=== PATIENT | female | born 1970 | race Caucasian/White ===

== ENCOUNTER 2021-12-13 15:29 | Outpatient (CLI) | payer BC, SELFPAY ==
--- NOTE | 2021-12-13 16:00 | CRLHL7_ITS ---
For Patients: As a result of the Century Cures Act, medical imaging exams and procedure reports are released immediately into your electronic medical record. You may view this report before your referring provider. If you have questions, please contact your health care provider. INDICATION: Leg pain and swelling. TECHNIQUE: Ultrasound venous duplex lower left extremity. Compression venous exam was performed using nguyen-scale, color Doppler, and spectral Doppler analysis. COMPARISON: None. FINDINGS: Deep veins: Sonographic imaging demonstrates the left common femoral, deep femoral, superficial femoral, popliteal, posterior tibial and the contralateral right common femoral veins to be fully compressible with normal color Doppler blood flow. Superficial veins: Greater saphenous vein is fully compressible. No popliteal cyst. Probable normal lymph node in the right inguinal region. IMPRESSION: No DVT in the left lower extremity. Dictated by Ilya Mata MD @ 12/13/2021 5:06:30 PM (Electronically Signed)
== END 2021-12-13 15:30 | disposition home or self-care (01) ==
PROVIDERS: PCP Family Medicine; Visit Provider Family Medicine
DX: M79.605 Pain in left leg (principal); R22.42 Localized swelling, mass and lump, left lower limb
CPT/HCPCS: 93971

== ENCOUNTER 2022-05-08 15:38 | Outpatient (CLI) | payer BC, SELFPAY ==
--- NOTE | 2022-05-08 15:30 | CRLHL7_ITS ---
For Patients: As a result of the Century Cures Act, medical imaging exams and procedure reports are released immediately into your electronic medical record. You may view this report before your referring provider. If you have questions, please contact your health care provider. HISTORY: Right midfoot pain. Known 5th metatarsal fracture. TECHNIQUE: Axial sagittal and coronal T1, proton density and STIR images were obtained of the right foot without contrast administration. COMPARISON: None FINDINGS: Osseous structures: Acute oblique nondisplaced 5th metatarsal diaphyseal fracture with associated bone marrow and surrounding soft tissue edema. - Joint spaces: TMT, metatarsophalangeal and interphalangeal joints are maintained. - Tendons, ligaments and muscular structures: The flexor and extensor tendons at the level forefoot are intact. Lisfranc ligament is intact. - Soft tissues: No Verdugo`s neuroma. The plantar aponeurosis at the forefoot level is intact. No significant muscle atrophy. Mild plantar subcutaneous edema. Focal fluid subjacent to the 5th metatarsal head could be due to adventitial bursitis (series 7, image 6). IMPRESSION: 1. Acute nondisplaced fracture of the 5th metatarsal diaphysis. 2. Small focus of fluid subjacent to 5th metatarsal head could be due to adventitial bursitis. Dictated by Tamir Aiken MD @ 05/09/2022 1:32:21 PM (Electronically Signed)
== END 2022-05-08 15:39 | disposition home or self-care (01) ==
LOC: MRI 15:39
PROVIDERS: PCP Family Medicine; Visit Provider Physician Assistant Surgical
DX: M79.671 Pain in right foot (principal); S92.354A Nondisplaced fracture of fifth metatarsal bone, right foot, initial encounter for closed fracture
CPT/HCPCS: 73718

== ENCOUNTER 2022-06-04 09:35 | Emergency (ER) | payer BC, SELFPAY ==
[2022-06-04 09:49] VITALS: BP 140/85; PULSE 61; RESP 20; TEMP 36.4; O2SAT 96; BMI 21.6
--- NOTE | 2022-06-04 10:56 | CRLHL7_ITS ---
For Patients: As a result of the Century Cures Act, medical imaging exams and procedure reports are released immediately into your electronic medical record. You may view this report before your referring provider. If you have questions, please contact your health care provider. Indication: Calf pain. Technique: MRI right foot May 08, 2022 views. Comparison: None. Findings: Bones: Subacute appearing nondisplaced fracture is incompletely healed in the right 5th metatarsal. No other osseous abnormality. Joint spaces: Unremarkable. Soft tissues: Unremarkable. Dictated by Leonardo Bell MD @ 06/04/2022 12:04:48 PM (Electronically Signed)
--- NOTE | 2022-06-04 10:56 | CRLHL7_ITS ---
For Patients: As a result of the Cures Act, medical imaging exams and procedure reports are released immediately into your electronic medical record. You may view this report before your referring provider. If you have questions, please contact your health care provider. INDICATION: Right calf pain, history fracture TECHNIQUE: Ultrasound venous duplex lower right extremity. Compression venous exam was performed using nguyen-scale, color Doppler, and spectral Doppler imaging. COMPARISON: None. FINDINGS: Sonographic imaging demonstrates the right common femoral, proximal deep femoral, femoral, popliteal, posterior tibial and greater saphenous and the contralateral left common femoral veins to be fully compressible with normal color Doppler blood flow. IMPRESSION: Normal right lower extremity venous ultrasound, no sign of deep venous thrombosis. Dictated by Nereida Holt MD @ 06/04/2022 12:55:11 PM Dictated by: Nereida Holt MD @ 06/04/2022 12:56:22 (Electronically Signed)
--- NOTE | 2022-06-04 10:57 | ED.LOWEXIN ---
HPI - Extremity Injury (Lower) General Chief Complaint: Extremity Pain/Injury, Lower Stated Complaint: Broken RT Foot has swelling and red Time Seen by Provider: 06/04/22 10:13 History of Present Illness HPI Narrative: This 52-year-old female comes in because of persistent pain in her right foot. She was concerned about some increased redness after being in the shower. She fractured her 5th metatarsal about 6 weeks ago. She had a spiral type fracture of the midshaft of the 5th metatarsal of the right foot. She has been in a Cam walker and still is nonweightbearing. She reports too much pain when attempting to bear weight. She is following with a physician's it administrative assistant in the orthopedic clinic in this regard. She does have a small area of bruising on the plantar surface of her right foot. This is been present throughout this time of recovery since the injury. Related Data Home Medications Medication Instructions Recorded Confirmed aspirin 325 mg tablet 325 mg PO QDAY 12/13/21 06/01/22 cholecalciferol (vitamin D3) 25 25 mcg PO QDAY 12/13/21 06/01/22 mcg (1,000 unit) capsule ascorbate calcium (vitamin C) 500 500 mg PO QDAY 05/30/22 06/01/22 mg tablet krill oil 500 mg capsule 500 mg PO .QD 05/30/22 06/01/22 Allergies Allergy/AdvReac Type Severity Reaction Status Date / Time penicillin V Allergy Mild swelling Verified 06/04/22 09:49 Rabies immune globulin, human Allergy Unknown headache, Uncoded 06/01/22 16:35 breathing difficultly, body aches Rabies vaccines Allergy Unknown headache, Uncoded 06/01/22 16:35 body aches, difficulty breating, shooting pains Tetanus toxoid Allergy Unknown breathing Uncoded 06/01/22 16:35 difficulty and swelling contrast dye Allergy red, hives Uncoded 06/01/22 16:35 Review of Systems Status of ROS: Reports: 10 or more systems reviewed and unremarkable except as noted in History and below Narrative: Constitutional: No fevers, no weight gain or loss. Eyes: No discharge. No vision changes. HENT: No congestion, no sore throat, no ear pain. Cardiovascular: No chest pain, no palpitations. Respiratory: No shortness of breath, no wheezes, no cough. Gastrointestinal: No abdominal pain, no vomiting, no diarrhea. Genitourinary: No dysuria, no hematuria. Musculoskeletal: Normal range of motion. Right foot pain as described above. Skin: No rashes, no pruritis. Neurological: No dizziness, weakness, sensory change, speech change. Endo/Heme/Allergies: No bruising or bleeding. No polydipsia. Pysch: no suicidality, no anxiety, no insomnia. All other systems reviewed and are negative. 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, lives in [place] exercises 3-4 times per week- walk, elliptical, weights - until 2019 non-smoker social drinker- 1-2/week Smoking Status: Never smoker Do you use any of these nicotine containing products: None Second hand tobacco smoke exposure: No How often do you have a drink containing alcohol: monthly or less How many standard drinks containing alcohol do you have on a typical day: 1 or 2 How often do you have six or more drinks on one occasion: Never AUDIT-C Alcohol total score: 1 Non-prescribed substance use: denies use service: No Exam Narrative: Exam Narrative: Constitutional: Well-developed, well-nourished, no acute distress. HEENT: Normocephalic, atraumatic. Neck: Normal range of motion. Nontender. Supple. Heart: Intact distal pulses. Lungs: No chest discomfort. No wheezes, rhonchi, or rales. Abdomen: Nontender. Back: Normal range of motion. Extremities: Normal range of motion. Tenderness along the plantar surface of the right foot. Slight increased erythema of the right foot compared to the left. No significant swelling. Skin: Intact. No rash. Warm. No erythema or pallor. Neurologic: No altered sensation. No weakness. Alert and oriented. Psychiatric: No suicidality. No anxiety or depression. No insomnia. Nursing notes and vitals signs are reviewed. Const: Vital Signs, click to edit/add: Vital Signs - 24 hr 06/04/22 09:49 Temperature 97.6 F Pulse Rate [Pulse Oximeter] 61 Respiratory Rate 20 Blood Pressure [Le ft Upper Arm] 140/85 H Pulse Oximetry 96 Oxygen Delivery Me thod Room Air Course Vital Signs Vital signs: Initial Vital Signs Temperature 97.6 F 06/04/22 09:49 Temperature Source Temporal Artery Scan 06/04/22 09:49 Pulse Rate 61 06/04/22 09:49 Pulse Rhythm 06/04/22 09:49 Respiratory Rate 20 06/04/22 09:49 Blood Pressure 140/85 H 06/04/22 09:49 Blood Pressure Mean 103 06/04/22 09:49 Blood Pressure Position Supine 06/04/22 09:49 Pulse Oximetry 96 06/04/22 09:49 Oxygen Delivery Method 06/04/22 09:49 Vital Signs Temperature 97.6 F 06/04/22 09:49 Pulse Rate 61 06/04/22 09:49 Respiratory Rate 20 06/04/22 09:49 Blood Pressure 140/85 H 06/04/22 09:49 Pulse Oximetry 96 06/04/22 09:49 Oxygen Delivery Method 06/04/22 09:49 Temperature 97.6 F 06/04/22 09:49 Pulse Rate 61 06/04/22 09:49 Respiratory Rate 20 06/04/22 09:49 Blood Pressure 140/85 H 06/04/22 09:49 Pulse Oximetry 96 06/04/22 09:49 Oxygen Delivery Method 06/04/22 09:49 MDM - Extremity Injury (Lower) MDM Narrative Medical decision making narrative: This patient comes in with concern about ongoing pain in her right foot and discoloration of her right foot at times especially when she has her foot down toward the ground and is dependent to gravity. She had a fracture of her 5th metatarsal more than 6 weeks ago. X-ray imaging today shows the fracture without much evidence of my opinion of proper healing. I would expect that this bone would be fused together by 6 weeks and be rather strong where she can ambulate. X-ray imaging she seems to show demineralization of the distal portion of the fractured bone. An ultrasound of her right lower extremity shows no evidence of vascular compromise. I gave reassurance is to the patient and advised her not to bear weight at all on this foot and to wear the cam walker. She has crutches to assist in this process. An arrangement is made for follow-up appointment with orthopedic clinic this week. I suggested that she should connect with an orthopedic surgeon for what may appear to be a nonunion of this particular fracture. Discharge Plan Discharge Clinical Impression: Foot fracture Patient Disposition: Home, Self-Care Condition: Unchanged Additional Instructions: Wear cam walker and avoid any weight-bearing on the right foot. Use crutches. Follow-up with orthopedic clinic to consult with orthopedic surgeon as scheduled. Prescriptions: No Action cholecalciferol (vitamin D3) 25 mcg (1,000 unit) capsule 25 mcg PO QDAY aspirin 325 mg tablet 325 mg PO QDAY ascorbate calcium (vitamin C) 500 mg tablet 500 mg PO QDAY krill oil 500 mg capsule 500 mg PO .QD Follow Up/Referrals: Nikki Mendoza MD [Staff Physician] - Stand Alone Forms: [employer] Info Instructions
--- NOTE | 2022-06-04 12:45 | ED.NURSE ---
Pt returns home with CAM walker and crutches, all brought from home.
--- NOTE | 2022-06-06 22:38 | ED.NURSE ---
Pt calling with questions regarding discharge instructions and xray results. Pt's xray results and discharge instructions read to pt.
== END 2022-06-04 13:05 | disposition home or self-care (01) ==
PROVIDERS: Emergency Provider Emergency Medicine Emergency Medical Services; PCP Family Medicine
DX: S92.354A Nondisplaced fracture of fifth metatarsal bone, right foot, initial encounter for closed fracture (principal)
CPT/HCPCS: 73630; 93971; 99283; 99284

== ENCOUNTER 2022-06-06 13:19 | Outpatient (CLI) | payer BC, SELFPAY ==
--- NOTE | 2022-06-06 13:00 | MR_ITS ---
[facility] [address] [facility] [address] Phone:?[phone] Fax:?[phone] Referring Physician Information: Jeffery Christiansen M.D. [address] [facility] [address] Phone:?[phone] Fax:?[phone] Patient:Rae Nascimento D.O.B:?1970 Sex:?Female Phone:?[phone] [facility] MRN:?[id number] Exam Date:?06/06/2022 ? EXAM: MRI of the LEFT FOOT MIDFOOT THROUGH FOREFOOT CLINICAL HISTORY: Left foot pain for multiple years. Evaluate for malignancy or other cause. COMPARISONS: None available. TECHNICAL: MR sequences of the left foot midfoot through forefoot: Axials: PD, STIR Coronals: T1, STIR, T2 Sagittals: PD, T2 Contrast: None Sedation: None FINDINGS: Osseous structures and joints: No fracture or suspicious bone marrow signal abnormality is seen. There is no subluxation, dislocation, joint space narrowing, or erosive change. There is a type II accessory navicular, which is not completely covered on all sequences in the [id number] of this study. Ligaments: The Lisfranc and collateral ligaments are intact. Myotendinous structures: The imaged portions of the extensor and flexor tendons are unremarkable. No muscle strain, tear, or atrophy is present. Soft tissues: No convincing evidence of intermetatarsal Verdugo neuroma, pathologic intermetatarsal bursitis, or ganglion. No mass lesion/neoplastic lesion is seen. IMPRESSION: Type II accessory navicular, a normal anatomic variant, not completely covered on all sequences in the [id number] of this study. Otherwise, unremarkable MRI of the left foot without fracture, osseous stress injury, ligamentous injury, tendinous pathology, or mass lesion. RCB Electronically signed on 06/07/2022 6:32:00 AM by Ozzie Dominguez M.D.
--- NOTE | 2022-06-06 13:45 | MR_ITS ---
[facility] [address] [facility] [address] Phone:?[phone] Fax:?[phone] Referring Physician Information: Jeffery Christiansen M.D. [address] [facility] [address] Phone:?[phone] Fax:?[phone] Patient:?Rebecca Nascimento D.O.B:?1970 Sex:?Female Phone:?[phone] [facility] MRN:?[id number] Exam Date:?06/06/2022 ? EXAM: MRI of the LEFT LEG INCLUDING TIBIA/FIBULA WITHOUT CONTRAST CLINICAL HISTORY: Ongoing left leg pain for multiple years without reported traumatic injury or previous surgery. Evaluate for malignancy or other cause. COMPARISONS: None available. TECHNICAL: MRI sequences of the left leg: Axials: T1, PD FS bilateral Coronals: T1, T2, STIR bilateral Sagittals: STIR Sedation: None Contrast: None FINDINGS: No fracture or suspicious bone marrow signal normality is seen. No muscle strain, tear, or atrophy is seen. No mass lesion is seen. IMPRESSION: Unremarkable MRI of the left leg/tibia-fibula without osseous pathology, muscular pathology, or mass lesion. RCB Electronically signed on 06/07/2022 6:20:00 AM by Ozzie Dominguez M.D.
== END 2022-06-06 13:20 | disposition home or self-care (01) ==
LOC: MRI 13:19
PROVIDERS: PCP Family Medicine; Visit Provider Family Medicine
DX: M79.672 Pain in left foot (principal); M79.605 Pain in left leg
CPT/HCPCS: 73718

== ENCOUNTER 2022-11-14 10:15 | Outpatient (RCR) | payer BC, SELFPAY | END 2023-01-10 13:34 | disposition home or self-care (01) | PROVIDERS: PCP Family Medicine; Visit Provider Podiatrist | DX: S92.354A Nondisplaced fracture of fifth metatarsal bone, right foot, initial encounter for closed fracture (principal); M72.2 Plantar fascial fibromatosis; M79.671 Pain in right foot; R26.89 Other abnormalities of gait and mobility; Z51.89 Encounter for other specified aftercare | CPT/HCPCS: 97110; 97116; 97162; 97535 ==

== ENCOUNTER 2025-02-23 21:11 | Emergency (ER) | payer BC, SELFPAY ==
--- OUTSIDE RECORDS SUMMARY | 2024-10-10 02:30 | XMS_ITS ---
Author Organization [facility] Address [facility] [place] [id number] Care Team Providers Care Vocational Services Specialist Name Role Phone [address] Primary Care Provider UnavailNIALL Gonsalez M.D. [phone] REASON FOR VISIT ENG (ENG) Encounters Encounter Location Date Provider Diagnosis [facility] [address] [place] [address] [address] [place] [address] 10/10/2024 NIALL BUCHANAN Plan Of Treatment Next Appt Details Provider Name:NIALL BUCHANAN, 07/23/2025 03:00:00 PM, [address] [place] [address], [address], [place], [address], Progress Notes * Hannah SMITHhelDOB: 0 (55 yo F)Acc No.[id number]:10/10/2024 Progress Note Patient: Brenda fierro Rebecca Provider: José Buchanan MD :1970 A ge:54 Y S ex:Female Date:10/10/2024 Address:[address] [place], [place] [address] Pcp:[address] Subjective: * Chief Complaints: * E NG (ENG) Billing Information: * Procedure Codes: * Electronic signature of NIALL BUCHANAN M.D. on 02/23/2025 at 10:16 PM EDT Sign off status: Pending * Provider: José Buchanan MD Date: 0 10/10/2024 Generated for Niesha harrington/Aris/Kassandra on: 0 02/23/2025 10:16 PM EDT
--- OUTSIDE RECORDS SUMMARY | 2024-10-24 02:30 | XMS_ITS ---
Author Organization [facility] Address [address] [place], [place] [address] Care Team Providers Care Forklift Operator Name Role Phone [address] Primary Care Provider UnavailNIALL Gonsalez M.D. [phone] Encounters Encounter Location Date Provider Diagnosis [facility]. [address] [place] [address] [address] [place] [address] 10/24/2024 NIALL BUCHANAN Plan Of Treatment Next Appt Details Provider Name:NIALL BUCHANAN, 07/23/2025 03:00:00 PM, [address] [place] [address], [address], [place], [address], Progress Notes * Hannah SMITHhelDOB: 0 (55 yo F)Acc No.[id number]:10/24/2024 Progress Note Patient: Brenda fierro Rebecca Provider: José Buchanan MD :1970 A ge:54 Y S ex:Female Date:10/24/2024 Address:[facility] [address] [facility] [address]cp:[address] Billing Information: * Procedure Codes: * Electronic signature of NIALL BUCHANAN M.D. on 02/23/2025 at 10:16 PM EDT Sign off status: Pending * Provider: José Buchanan MD Date: 0 10/24/2024 Generated for Niesha harrington/Aris/eTransmitting on: 0 02/23/2025 10:16 PM EDT
--- OUTSIDE RECORDS SUMMARY | 2024-12-05 08:00 | XMS_ITS ---
Author Organization [facility] Address [address] [place], [place] [address] Care Team Providers Care Homoeopath Name Role Phone [address] Primary Care Provider UnavailNIALL Gonsalez M.D. [phone] Encounters Encounter Location Date Provider Diagnosis [facility]. [address] [place] [address] [address] [place] [address] 12/05/2024 NIALL BUCHANAN Plan Of Treatment Next Appt Details Provider Name:NIALL BUCHANAN, 07/23/2025 03:00:00 PM, [address] [place] [address], [address], [place], [address], Progress Notes * Hannah SMITHhelDOB: 0 (55 yo F)Acc No.[id number]:12/05/2024 Progress Note Patient: Brenda fierro Rebecca Provider: José Buchanan MD :1970 A ge:54 Y S ex:Female Date:12/05/2024 Address:[facility] [address] [facility] [address] Billing Information: * Procedure Codes: * Electronic signature of NIALL BUCHANAN M.D. on 02/23/2025 at 10:16 PM EDT Sign off status: Pending * Provider: José Buchanan MD Date: 0 12/05/2024 Generated for Niesha harrington/Aris/eTransmitting on: 0 02/23/2025 10:16 PM EDT
--- OUTSIDE RECORDS SUMMARY | 2025-01-16 07:15 | XMS_ITS ---
Author Organization [facility] Address [address] [place], [place] [address] Care Team Providers Care Sales Teacher Name Role Phone [address] Primary Care Provider UnavailNIALL Gonsalez M.D. [phone] Encounters Encounter Location Date Provider Diagnosis [facility]. [address] [place] [address] [address] [place] [address] 01/16/2025 NIALL BUCHANAN Plan Of Treatment Next Appt Details Provider Name:NIALL BUCHANAN, 07/23/2025 03:00:00 PM, [address] [place] [address], [address], [place], [address], Progress Notes * Hannah SMITHhelDOB: 0 (55 yo F)Acc No.[id number]:01/16/2025 Progress Note Patient: Brenda fierro Rebecca Provider: José Buchanan MD :1970 A ge:55 Y S ex:Female Date:01/16/2025 Address:[facility] [address] [facility] [address] Billing Information: * Procedure Codes: * Electronic signature of NIALL BUCHANAN M.D. on 02/23/2025 at 10:16 PM EDT Sign off status: Pending * Provider: José Buchanan MD Date: 0 01/16/2025 Generated for Niesha harrington/rAis/eTransmitting on: 0 02/23/2025 10:16 PM EDT
--- OUTSIDE RECORDS SUMMARY | 2025-01-20 09:30 | XMS_ITS ---
Author Organization [facility] Address [address], [place] [id number] Care Team Providers Care Donation Specialist Name Role Phone Way, Crow Primary Care Provider Unavaila NIALL Lucero M.D. Unavailable [phone] Allergies Allergen (clinical drug ingredient) Drug/Non Drug Allergy documented on EMR Reaction Allergy Type Onset Date Status tetanus vaccine (uncoded) Unknown Allergy Active Penicillin Unknown Drug Allergy Active Vaccine product containing Hepatitis B virus antigen (medicinal product) Hepatitis B Virus Vaccines Unknown Drug Allergy Active Moderna COVID-19 Vaccine Unknown Drug Allergy Active Reason For Referral Reason pain with prolonged pain in the left lower extremity, unable to tolerate Gabapentin, please evaluate Diagnosis 1 Intervertebral disc disorders with radiculopathy, lumbar region (M51.16) Referral Organization [facility] Referring Provider First Name NIALL Referring Provider Last Name CHANEL Referring Provider Speciality Neurology Referred Provider [facility] Referred Provider Specialty Pain Managem ent Referral Priority Routine REASON FOR VISIT vertigo ae Medications Medication SIG (Take, Route, Frequency, Duration) Notes Start Date End Date Status Vitamin C 500 MG Capsule 1 tablet Orally PRN Active Vitamin D3 1000 UNIT Capsule 1 capsule Orally Every other day Active Levothyroxine Sodium 25 MCG Tablet 1 tablet in the morning on an empty stomach Oral Once a day; Duration: 30 days stopped taking temporarily for blood test Not-Taking/P RN Meclizine HCl 25 MG Tablet 1 tablet as needed Oral every 12 hrs; Duration: 4 days Active Sodium Polystyrene Sulfonate 15 GM/60ML Suspension 60 mL Combination Once a day; Duration: 1 days Not-Taking/P RN Probiotic - Tablet as directed Orally daily Not-Taking/P RN Social History Tobacco Use: Social History Observation Description Date Details (start date - stop date) Never Smoker NA - NA Social History Social History Social Info Question Answer Notes alcohol How often did you osborn ve a drink containing alcohol in the past year? 2 to 4 times a month (2 points) How many drinks did you have on a typical day when you were drinking in the past year 1 or 2 drinks (0 points) How often did you have 6 or more drinks on one occasion in the past year? never (0 points) AUDIT-C (Standard) Did you have a drink containi ng alcohol in the past year? Yes How often did you have a drink containing alcohol in the past year? Monthly or less (1 point) How many drinks did you have on a typical day when you were drinking in the past year? Declined to specify (0 point) How often did you have six or more drinks on one occasion in the past year? 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 marital status , single, , working yes custodial no others at home no recreational drugs no Vital Signs Weight 134.4 lbs 01/20/2025 Blood pressure systolic 123 01/21/20 25 Blood pressure diastolic 79 025 BMI 20.74 01/20/2025 Height 67.5 inches 01/20/2025 Encounters Encounter Location Date Provider Diagnosis [facility] [address] [place] [id number] 01/20/2025 NIALL BUCHANAN Other headache syndr ome G44.89 ; Paresthesia of left leg R20.2 ; Discitis, unspecified, cervical region M46.42 ; Cervicalgia M54.2 ; Intervertebral disc disorders with radiculopathy, lumbar region M51.16 ; Other peripheral vertigo, unspecified ear H81.399 and Vertigo of central origin H81.4 Assessments Encounter Date Diagnosis (ICD Code) Assessment Notes Treatment Notes Treatment Clinical Notes Section Notes 01/20/2025 Other headache syndrome (ICD-10 - G44.89) Follow with ENT as scheduled The patient is a 54yo woman who is presenting with acute onset of headache following an event in [place]. The patient's exam is non-focal. The patient's symptoms may be secondary to indirect lightning stroke with paresthesias, cloudy thinking and headache. May also be atypical migraine vs. other headache vs. idiopathic. Patient educated on possible diagnosis. Patient will have MRI Brain and EEG to evaluate. Patient will be given Medrol King; side effects reviewed. Patient may require daily medication but will determine on repeat visit. Patient's MRI Brain and EEG reviewed with patient and normal. The patient's symptoms continue and patient reports abnormal findings with ENT evaluation. Patient encouraged to follow-up with ENT as scheduled. If further evaluation is negative then patient to contact office for follow-up and will then discuss daily prophylactic medication. Patient with recent rabies vaccine and having headaches, stiffness and pain following injection. Patient symptoms most likely secondary to vaccine response. Patient educated on possible diagnosis. Patient will need MRI Brain w/wo and MRI C-spine to evaluate for other etiology. Patient had negative MRI Brain and MRI C-spine with possible discitis/osteomy elitis. Patient ESR/CRP was normal. Patient educated that findings are most likely not infection and symptoms are consistent with vaccination response. The patient with LLE paresthesia and neuropathy pain. The patient will have NCS/EMG to further investigate. Patient symptoms could be neuropathy vs myopathy vs idiopathic. Patient with worsening left lower extremity symptoms. Patient will need MRI L-spine and will also obtain EMG/NCS LLE. Patient may require PT, pain management, and/or surgical evaluation; will determine once studies reviewed. The patient with progression of degenerative changes and recommend PT and pain management. The patient deferred and will try stretch clinic. May call for referral for pain management. Patient symptoms have continued and there is reported improvement with Tylenol. Patient educated that Tylenol not typically beneficial for nerve pain and to discuss symptoms with PCP and may benefit from ortho evaluation. Patient with continued pain in the left lower extremity and will refer to pain management. Patient now presenting with dizziness for several weeks. Patient's exam is non-focal. Patient may have peripheral vs. central vertigo. Patient will need MRI Brain and will also obtain ENG. The patient MRI Brain/IAC non-revealing. ENG pending; dizziness improved and does not require ENG. Patient encouraged to follow with ENT as scheduled. Patient instructed to contact office if symptoms worsen or change. Total time: 30 min or greater spent - preparing to see patient - obtaining or reviewing separately obtained history - performing medically appropriate exam - ordering meds and tests, documenting clinical information in the chart - independently interpreting results and communicating results to the patient / family / caregiver 01/20/2025 Paresthesia of left leg (ICD-10 - R20.2) The patient is a 54yo woman who is presenting with acute onset of headache following an event in [place]. The patient's exam is non-focal. The patient's symptoms may be secondary to indirect lightning stroke with paresthesias, cloudy thinking and headache. May also be atypical migraine vs. other headache vs. idiopathic. Patient educated on possible diagnosis. Patient will have MRI Brain and EEG to evaluate. Patient will be given Medrol King; side effects reviewed. Patient may require daily medication but will determine on repeat visit. Patient's MRI Brain and EEG reviewed with patient and normal. The patient's symptoms continue and patient reports abnormal findings with ENT evaluation. Patient encouraged to follow-up with ENT as scheduled. If further evaluation is negative then patient to contact office for follow-up and will then discuss daily prophylactic medication. Patient with recent rabies vaccine and having headaches, stiffness and pain following injection. Patient symptoms most likely secondary to vaccine response. Patient educated on possible diagnosis. Patient will need MRI Brain w/wo and MRI C-spine to evaluate for other etiology. Patient had negative MRI Brain and MRI C-spine with possible discitis/osteomy elitis. Patient ESR/CRP was normal. Patient educated that findings are most likely not infection and symptoms are consistent with vaccination response. The patient with LLE paresthesia and neuropathy pain. The patient will have NCS/EMG to further investigate. Patient symptoms could be neuropathy vs myopathy vs idiopathic. Patient with worsening left lower extremity symptoms. Patient will need MRI L-spine and will also obtain EMG/NCS LLE. Patient may require PT, pain management, and/or surgical evaluation; will determine once studies reviewed. The patient with progression of degenerative changes and recommend PT and pain management. The patient deferred and will try stretch clinic. May call for referral for pain management. Patient symptoms have continued and there is reported improvement with Tylenol. Patient educated that Tylenol not typically beneficial for nerve pain and to discuss symptoms with PCP and may benefit from ortho evaluation. Patient with continued pain in the left lower extremity and will refer to pain management. Patient now presenting with dizziness for several weeks. Patient's exam is non-focal. Patient may have peripheral vs. central vertigo. Patient will need MRI Brain and will also obtain ENG. The patient MRI Brain/IAC non-revealing. ENG pending; dizziness improved and does not require ENG. Patient encouraged to follow with ENT as scheduled. Patient instructed to contact office if symptoms worsen or change. Total time: 30 min or greater spent - preparing to see patient - obtaining or reviewing separately obtained history - performing medically appropriate exam - ordering meds and tests, documenting clinical information in the chart - independently interpreting results and communicating results to the patient / family / caregiver 01/20/2025 Discitis, unspecified, cervical region (ICD-10 - M46.42) The patient is a 54yo woman who is presenting with acute onset of headache following an event in [place]. The patient's exam is non-focal. The patient's symptoms may be secondary to indirect lightning stroke with paresthesias, cloudy thinking and headache. May also be atypical migraine vs. other headache vs. idiopathic. Patient educated on possible diagnosis. Patient will have MRI Brain and EEG to evaluate. Patient will be given Medrol King; side effects reviewed. Patient may require daily medication but will determine on repeat visit. Patient's MRI Brain and EEG reviewed with patient and normal. The patient's symptoms continue and patient reports abnormal findings with ENT evaluation. Patient encouraged to follow-up with ENT as scheduled. If further evaluation is negative then patient to contact office for follow-up and will then discuss daily prophylactic medication. Patient with recent rabies vaccine and having headaches, stiffness and pain following injection. Patient symptoms most likely secondary to vaccine response. Patient educated on possible diagnosis. Patient will need MRI Brain w/wo and MRI C-spine to evaluate for other etiology. Patient had negative MRI Brain and MRI C-spine with possible discitis/osteomy elitis. Patient ESR/CRP was normal. Patient educated that findings are most likely not infection and symptoms are consistent with vaccination response. The patient with LLE paresthesia and neuropathy pain. The patient will have NCS/EMG to further investigate. Patient symptoms could be neuropathy vs myopathy vs idiopathic. Patient with worsening left lower extremity symptoms. Patient will need MRI L-spine and will also obtain EMG/NCS LLE. Patient may require PT, pain management, and/or surgical evaluation; will determine once studies reviewed. The patient with progression of degenerative changes and recommend PT and pain management. The patient deferred and will try stretch clinic. May call for referral for pain management. Patient symptoms have continued and there is reported improvement with Tylenol. Patient educated that Tylenol not typically beneficial for nerve pain and to discuss symptoms with PCP and may benefit from ortho evaluation. Patient with continued pain in the left lower extremity and will refer to pain management. Patient now presenting with dizziness for several weeks. Patient's exam is non-focal. Patient may have peripheral vs. central vertigo. Patient will need MRI Brain and will also obtain ENG. The patient MRI Brain/IAC non-revealing. ENG pending; dizziness improved and does not require ENG. Patient encouraged to follow with ENT as scheduled. Patient instructed to contact office if symptoms worsen or change. Total time: 30 min or greater spent - preparing to see patient - obtaining or reviewing separately obtained history - performing medically appropriate exam - ordering meds and tests, documenting clinical information in the chart - independently interpreting results and communicating results to the patient / family / caregiver 01/20/2025 Cervicalgia (ICD-10 - M54.2) The patient is a 54yo woman who is presenting with acute onset of headache following an event in [place]. The patient's exam is non-focal. The patient's symptoms may be secondary to indirect lightning stroke with paresthesias, cloudy thinking and headache. May also be atypical migraine vs. other headache vs. idiopathic. Patient educated on possible diagnosis. Patient will have MRI Brain and EEG to evaluate. Patient will be given Medrol King; side effects reviewed. Patient may require daily medication but will determine on repeat visit. Patient's MRI Brain and EEG reviewed with patient and normal. The patient's symptoms continue and patient reports abnormal findings with ENT evaluation. Patient encouraged to follow-up with ENT as scheduled. If further evaluation is negative then patient to contact office for follow-up and will then discuss daily prophylactic medication. Patient with recent rabies vaccine and having headaches, stiffness and pain following injection. Patient symptoms most likely secondary to vaccine response. Patient educated on possible diagnosis. Patient will need MRI Brain w/wo and MRI C-spine to evaluate for other etiology. Patient had negative MRI Brain and MRI C-spine with possible discitis/osteomy elitis. Patient ESR/CRP was normal. Patient educated that findings are most likely not infection and symptoms are consistent with vaccination response. The patient with LLE paresthesia and neuropathy pain. The patient will have NCS/EMG to further investigate. Patient symptoms could be neuropathy vs myopathy vs idiopathic. Patient with worsening left lower extremity symptoms. Patient will need MRI L-spine and will also obtain EMG/NCS LLE. Patient may require PT, pain management, and/or surgical evaluation; will determine once studies reviewed. The patient with progression of degenerative changes and recommend PT and pain management. The patient deferred and will try stretch clinic. May call for referral for pain management. Patient symptoms have continued and there is reported improvement with Tylenol. Patient educated that Tylenol not typically beneficial for nerve pain and to discuss symptoms with PCP and may benefit from ortho evaluation. Patient with continued pain in the left lower extremity and will refer to pain management. Patient now presenting with dizziness for several weeks. Patient's exam is non-focal. Patient may have peripheral vs. central vertigo. Patient will need MRI Brain and will also obtain ENG. The patient MRI Brain/IAC non-revealing. ENG pending; dizziness improved and does not require ENG. Patient encouraged to follow with ENT as scheduled. Patient instructed to contact office if symptoms worsen or change. Total time: 30 min or greater spent - preparing to see patient - obtaining or reviewing separately obtained history - performing medically appropriate exam - ordering meds and tests, documenting clinical information in the chart - independently interpreting results and communicating results to the patient / family / caregiver 01/20/2025 Intervertebral disc disorders with radiculopathy, lumbar region (ICD-10 - M51.16) The patient is a 54yo woman who is presenting with acute onset of headache following an event in [place]. The patient's exam is non-focal. The patient's symptoms may be secondary to indirect lightning stroke with paresthesias, cloudy thinking and headache. May also be atypical migraine vs. other headache vs. idiopathic. Patient educated on possible diagnosis. Patient will have MRI Brain and EEG to evaluate. Patient will be given Medrol King; side effects reviewed. Patient may require daily medication but will determine on repeat visit. Patient's MRI Brain and EEG reviewed with patient and normal. The patient's symptoms continue and patient reports abnormal findings with ENT evaluation. Patient encouraged to follow-up with ENT as scheduled. If further evaluation is negative then patient to contact office for follow-up and will then discuss daily prophylactic medication. Patient with recent rabies vaccine and having headaches, stiffness and pain following injection. Patient symptoms most likely secondary to vaccine response. Patient educated on possible diagnosis. Patient will need MRI Brain w/wo and MRI C-spine to evaluate for other etiology. Patient had negative MRI Brain and MRI C-spine with possible discitis/osteomy elitis. Patient ESR/CRP was normal. Patient educated that findings are most likely not infection and symptoms are consistent with vaccination response. The patient with LLE paresthesia and neuropathy pain. The patient will have NCS/EMG to further investigate. Patient symptoms could be neuropathy vs myopathy vs idiopathic. Patient with worsening left lower extremity symptoms. Patient will need MRI L-spine and will also obtain EMG/NCS LLE. Patient may require PT, pain management, and/or surgical evaluation; will determine once studies reviewed. The patient with progression of degenerative changes and recommend PT and pain management. The patient deferred and will try stretch clinic. May call for referral for pain management. Patient symptoms have continued and there is reported improvement with Tylenol. Patient educated that Tylenol not typically beneficial for nerve pain and to discuss symptoms with PCP and may benefit from ortho evaluation. Patient with continued pain in the left lower extremity and will refer to pain management. Patient now presenting with dizziness for several weeks. Patient's exam is non-focal. Patient may have peripheral vs. central vertigo. Patient will need MRI Brain and will also obtain ENG. The patient MRI Brain/IAC non-revealing. ENG pending; dizziness improved and does not require ENG. Patient encouraged to follow with ENT as scheduled. Patient instructed to contact office if symptoms worsen or change. Total time: 30 min or greater spent - preparing to see patient - obtaining or reviewing separately obtained history - performing medically appropriate exam - ordering meds and tests, documenting clinical information in the chart - independently interpreting results and communicating results to the patient / family / caregiver 01/20/2025 Other peripheral vertigo, unspecified ear (ICD-10 - H81.399) The patient is a 54yo woman who is presenting with acute onset of headache following an event in [place]. The patient's exam is non-focal. The patient's symptoms may be secondary to indirect lightning stroke with paresthesias, cloudy thinking and headache. May also be atypical migraine vs. other headache vs. idiopathic. Patient educated on possible diagnosis. Patient will have MRI Brain and EEG to evaluate. Patient will be given Medrol King; side effects reviewed. Patient may require daily medication but will determine on repeat visit. Patient's MRI Brain and EEG reviewed with patient and normal. The patient's symptoms continue and patient reports abnormal findings with ENT evaluation. Patient encouraged to follow-up with ENT as scheduled. If further evaluation is negative then patient to contact office for follow-up and will then discuss daily prophylactic medication. Patient with recent rabies vaccine and having headaches, stiffness and pain following injection. Patient symptoms most likely secondary to vaccine response. Patient educated on possible diagnosis. Patient will need MRI Brain w/wo and MRI C-spine to evaluate for other etiology. Patient had negative MRI Brain and MRI C-spine with possible discitis/osteomy elitis. Patient ESR/CRP was normal. Patient educated that findings are most likely not infection and symptoms are consistent with vaccination response. The patient with LLE paresthesia and neuropathy pain. The patient will have NCS/EMG to further investigate. Patient symptoms could be neuropathy vs myopathy vs idiopathic. Patient with worsening left lower extremity symptoms. Patient will need MRI L-spine and will also obtain EMG/NCS LLE. Patient may require PT, pain management, and/or surgical evaluation; will determine once studies reviewed. The patient with progression of degenerative changes and recommend PT and pain management. The patient deferred and will try stretch clinic. May call for referral for pain management. Patient symptoms have continued and there is reported improvement with Tylenol. Patient educated that Tylenol not typically beneficial for nerve pain and to discuss symptoms with PCP and may benefit from ortho evaluation. Patient with continued pain in the left lower extremity and will refer to pain management. Patient now presenting with dizziness for several weeks. Patient's exam is non-focal. Patient may have peripheral vs. central vertigo. Patient will need MRI Brain and will also obtain ENG. The patient MRI Brain/IAC non-revealing. ENG pending; dizziness improved and does not require ENG. Patient encouraged to follow with ENT as scheduled. Patient instructed to contact office if symptoms worsen or change. Total time: 30 min or greater spent - preparing to see patient - obtaining or reviewing separately obtained history - performing medically appropriate exam - ordering meds and tests, documenting clinical information in the chart - independently interpreting results and communicating results to the patient / family / caregiver 01/20/2025 Vertigo of central origin (ICD-10 - H81.4) The patient is a 54yo woman who is presenting with acute onset of headache following an event in [place]. The patient's exam is non-focal. The patient's symptoms may be secondary to indirect lightning stroke with paresthesias, cloudy thinking and headache. May also be atypical migraine vs. other headache vs. idiopathic. Patient educated on possible diagnosis. Patient will have MRI Brain and EEG to evaluate. Patient will be given Medrol King; side effects reviewed. Patient may require daily medication but will determine on repeat visit. Patient's MRI Brain and EEG reviewed with patient and normal. The patient's symptoms continue and patient reports abnormal findings with ENT evaluation. Patient encouraged to follow-up with ENT as scheduled. If further evaluation is negative then patient to contact office for follow-up and will then discuss daily prophylactic medication. Patient with recent rabies vaccine and having headaches, stiffness and pain following injection. Patient symptoms most likely secondary to vaccine response. Patient educated on possible diagnosis. Patient will need MRI Brain w/wo and MRI C-spine to evaluate for other etiology. Patient had negative MRI Brain and MRI C-spine with possible discitis/osteomy elitis. Patient ESR/CRP was normal. Patient educated that findings are most likely not infection and symptoms are consistent with vaccination response. The patient with LLE paresthesia and neuropathy pain. The patient will have NCS/EMG to further investigate. Patient symptoms could be neuropathy vs myopathy vs idiopathic. Patient with worsening left lower extremity symptoms. Patient will need MRI L-spine and will also obtain EMG/NCS LLE. Patient may require PT, pain management, and/or surgical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
[2025-02-23 21:14] VITALS: BP 140/88; PULSE 61; RESP 18; TEMP 36.7; O2SAT 97; BMI 20.4
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
--- OUTSIDE RECORDS SUMMARY | 2025-02-23 21:17 | XMS_ITS | Clinical Summary ---
Author Organization [facility] Address [address] [place] [address] Care Team Providers Care Government Auditor Name Role Phone Fabricio Carrion MD Unavailable [phone] Abhijit George MD Primary Care Provider [phone] Allergies Active Allergy Reactions Criticality Noted Date Comments Atorvastatin Other - Describe In Comment Field 12/19/2019 Diarrhea, headache, dizziness Diarrhea, headache, dizziness Cephalexin Stomach Upset 01/25/2024 Covid-19 Vaccine, Mrna, [id number], Lnp-S (Moderna) Edema 10/27/2020 Tongue swelling, chest pressure Iodinated Contrast Media Anaphylaxis High 11/26/2020 Penicillins Rash,Hives 11/13/2007 Pollen Extracts *Unknown 10/26/2020 Rabies Immune Globulin Anaphylaxis High 05/04/2022 Rabies Vaccine, Mary Cell Shortness Of Breath,Headache,Tach ycardia,Palpitations ,Dyspnea High 05/13/2020 Red Yeast Rice Headache 12/19/2019 Terconazole Other - Describe In Comment Field 11/06/2017 Significant vaginal irritation and swelling. Tetanus And Diphtheria Toxoids, Adsorbed, Adult Edema,Myalgia 12/12/2014 TdaP administered in right deltoid Unlisted Allergen (Include Detail In Comments) *Unknown 10/26/2020 Medications acetaminophen (TYLENOL EXTRA STRGTH) 500 mg tablet Take 1,000 mg by mouth every 6 hours if needed. Active cholecalciferol (VITAMIN D3) 1,000 unit capsule Take 1,000 units by mouth. Active celecoxib 100 mg capsuleIndicati ons:Lumbar foraminal stenosis,Chroni c left-sided low back pain with left-sided sciatica Take 1 Capsule (100 mg) by mouth once daily with a meal. 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 10/27/2020 Mixed hyperlipidemia 10/26/2020 Tinnitus of left ear 08/02/2018 Mitral valve prolapse 12/19/2017 Nonrheumatic mitral (valve) insufficiency 2015 Resolved Problems Problem Noted Date Diagnosed Date Resolved Date Discoloration of skin of finger 03/01/2022 08/14/2024 Injury of nerve of lower extremity 12/27/2021 08/14/2024 Upper extremity aneurysm 10/26/202001/2025 Congenital venous varix 11/07/201710/27 Menopause present 01/21/2015 08/14/2024 Loss of weight 04/12/2012 07/18/2024 Overview (04/15/2012): Colonoscopy 03/2012 normal, recommend CT chest, abdomen, pelvis Other malaise and fatigue 04/12/2012 Abdominal pain, periumbilic 04/12/2012 08/14/2024 Constipation 04/12/2012 08/14/2024 Diarrhea 04/12/2012 08/14/2024 Abdominal pain, epigastric 03/19/2012 0 08/14/2024 Overview (03/19/2012): EGD 02/2012 normal Encounters Date Type Department Care Team Description 02/23/2025 1:15 PM CDT Office Visit [facility] [address] [place] [address] Evangelina Lambert PA Bite (Probable bee sting on left arm x2 days ago ) 02/23/2025 Travel 02/23/2025 Telephone [facility] [address] [place] [address] Abhijit George MD Appointment Request 02/23/2025 Nurse Triage [facility] [address] [place] [address] Abhijit George MD insect bite 02/18/2025 2:15 PM CDT Office Visit [facility] [address] [place] [address] Roverto Rodriguez, DPM Consult (Left great toe wart, right foot toenails) 02/18/2025 Travel 02/13/2025 7:55 AM CDT Office Visit [facility] [address] [place] [address] Abhijit George MD Follow Up 02/13/2025 Telephone [facility] [address] [place] [address] Shay Mallory MD Questions 02/13/2025 Travel 02/03/2025 Orders Only [facility] Scanner 1 scan: (1-Ord) [facility], CULTURE,URINE, 02/03/2025 01/29/2025 Orders Only [facility] Scanner 1 scan: (1-Ord) [facility], MULTIPLE LAB RESULTS, 01/29/2025 12/22/2024 2:45 PM CDT Ancillary Procedure [facility] [address] [place] [address] 12/22/2024 Travel 12/19/2024 3:30 PM CDT Office Visit [facility] [address] [place] [address] Abbi Cazares, DO Back Pain/problem (OMT) 12/19/2024 Telephone [facility] [address] [place] [address] Evangelina Lambert PA Results 12/18/2024 4:10 PM CDT Office Visit [facility] [address] [place] [address] Evangelina Lambert PA Foot Problem 12/18/2024 3:45 PM CDT Ancillary Procedure [facility] [address] [place] [address] 12/18/2024 Travel 12/16/2024 Telephone [facility] [address] [place] [address] Abhijit George MD Questions (Appointment or Xray order) 12/01/2024 10:45 AM CDT Office Visit [facility] [address] [place] [address] Abhijit George MD Follow Up 12/01/2024 Travel from Last 3 Months Immunizations Immunization Administration Dates Next Due COVID-19 vaccine (Moderna 100mcg/0.5mL) PF, MDV 09/17/2020 Covid-19 Vaccine (Unspecified) 09/20/2020 Hepatitis B (Adult) 11/19/2024 Inactivated Polio Vaccine 07/16/2009 Meningococcal Mcv4, Unspecif ied Formulation 07/16/2009 Meningococcal, Unspecified 07/16/2009 Rabavert 04/21/2020, 0,04/10/2020,04/07 Td, Preservative Free (age >= 7 Years) 4 Tdap 11/14/2024,12/11/2014 Typhoid, Unspecified 07/16/2009,11/26/2006 Family History Medical History Relation Name Comments Leukemia Father Cancer-breast Maternal Aunt Multiple sclerosis Mother Cancer-breast Other Maternal Great Aunt Cancer Paternal Grandfather bladder Cancer-ovarian No Family History Relation Name Status Comments Father Maternal Aunt Mother Other Maternal Great Aunt Paternal Grandfather Paternal Grandmother Social History Tobacco Use Types Packs/Day Years Used Date Smoking Tobacco: Never Smokeless Tobacco: Never Tobacco Cessation:Counseling Given: Yes Alcohol Use Standard Drinks/Week Comments Yes 0 (1 standard drink = 0.6 oz pur e alcohol) rare PHQ-2 Answer Date Recorded PHQ-2 TOTAL SCORE 0 08/14/2024 Social Connections Answer Date Recorded Do you often feel lonely or isolated from those around you? 0 10/13/2024 Alcohol Use Answer Date Recorded How often do you have a drink containing alcohol ? 1 02/13/2025 How many drinks containing a lcohol do you have on a typical day when you are drinking? 0 02/13/2025 How often do you have five or more drinks on one occasion? 0 02/13/2025 Financial Resource Strain Answer Date R ecorded Difficulty of Paying Living Expenses 3 10/13/2024 Difficulty of Paying Living Expenses Not on file 10/13/2024 Food Insecurity Answer Date Recorded Do you worry your food will run out before you are able to buy more? 1 10/13/2024 Transportation Needs Answer Date Record ed Does lack of transportation keep you from medica l appointments? 1 10/13/2024 Does lack of transportation keep you from work, meetings or getting things that you need? 1 10/13/2024 Housing Stability Answer Date Recorded What is your housing situation today? 1 10/13/2024 Utilities Answer Date Recorded Do you have trouble paying f or utilities (for example, heat, electricity, water, phone)? 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 Not on file Not on file Not on juan e Travel History Travel Start Travel End [place] 01/09/2025 02/12/2025 Obstetrics History Para Term AB IAB SAB Ectopic Multiple Livin g Live Births 1 1 Date Outcome GA Total Labor Labor/2nd/3rd Weight Sex Type Anes PTL Lydia A1 A5 Name Clin 999 M Vag Last Filed Vital Signs Vital Sign Reading Time Taken Comments Blood Pressure 148/80 02/23/2025 1:19 PM CDT Pulse 54 02/23/2025 1:19 PM CDT Temperature 35.9 C (96.6 F) 11/19/2024 4:15 PM CDT Respiratory Rate 14 08/01/2018 1:50 PM INFORMATICS SCIENTIST Oxygen Saturation 98% 02/23/2025 1:19 PM CDT Inhaled Oxygen Concentration - - Weight 61.6 kg (135 lb 12.8 oz) 02/23/2025 1:19 PM CDT Height 170.2 cm (5' 7.01) 08/14/2024 1 2:32 PM CDT Body Mass Index 21.26 08/14/2024 12:32 PM CDT Plan of Treatment Upcoming Encounters Date Type Department Care Team (Late st Contact Info) Description 03/19/2025 2:40 PM CDT Office Visit [facility] [address] [place] [address] Soham Felton MD [address] [place] [place] [address] 04/27/2025 1:00 PM INFORMATICS SCIENTIST Office Visit [facility] [address] [place] [address] [place] [address] [place], [place] [id number] Health Maintenance Due Date Last Done Comments Pneumococcal series for age 50+ (1 of 2 - PCV) 1989 Zoster (shingles) series for age 50+ (1 of 2) 01/12/2020 Hepatitis B series for 19+ ( 2 of 3 - 19+ 3-dose series) 12/17/2024 11/19/2024 COVID-19 vaccine series (3 - 2024- season) 2025 11/25/2020, 09/20/2020, 09/17/2020 Influenza Vaccine (#1) 2025 Mammogram for age 45-75 05/05/2025 05/05/20 24 (Completed outside of [facility]!), 12/28/2020, 12/19/2019, Additional history exists BMI (ht and wt on same day) for age 18+ 08/14/2025 08/14/2024, 12/24/2020, 11/26/2020, Additional history exists Depression screening for age 12+ 08/18/2025 08/18/2024, 08/14/2024, 03/10/2020, Additional history exists Pap test for age 21-65 05/05/2027 (Completed outside of [facility]!), 03/28/2019, 11/30/2016, Additional history exists Lipids for age 45-75 10/03/2029 10/03/2024, 10/04/2023, 12/19/2019, Additional history exists Colonoscopy through age 75 11/23/2030 11/23/2020, Tetanus booster 11/14/2034 11/14/2024, 07/11/2014, 10/27/2003 RSV vaccine for adults or (1 - 1-dose 75+ series) 2045 HIV for age 15-65 Completed 08/02/2018 Hepatitis C screening for ag e 18-79 Completed 10/04/2023 Procedures Procedure Name Priority Date/Time Associated Diagnosis Comments SCAN-PATHOLOGY REPORT 02/03/2025 12:00 AM CDT SCAN-LABORATORY REPORT 01/29/2025 12:00 AM CDT XR FOOT 3 VIEWS LEFT MARILY 12/22/2024 2:49 PM CDT Foot pain, left XR ANKLE 3 VIEWS LEFT MARILY 12/18/2024 3:45 PM CDT Acute left ankle pain LIPID PANEL Routine 10/03/2024 3:40 PM CDT Hyperlipidemia, unspecified hyperlipidemia type ANTI HCV Routine 10/04/2023 2:16 PM CDT Need for hepatitis C screening test XR MAMMO SHERICE BILAT SCREEN Routine 12/28/2020 4:27 PM CDT Visit for screening mammogram COLONOSCOPY 11/23/2020 11:34 AM CDT ANTI HIV 1/2 Routine 08/02/2018 2:56 PM INFORMATICS SCIENTIST Night sweats DIGITAL STRATEGIST THIN PREP PAP SCREEN IMAGED Routine 11/30/2016 5:44 PM CDT Cervical cancer screening from Last 3 Months or Most Recently Relevant to Health Maintenance Results * SCAN-PATHOLOGY REPORT (02/03/2025 12:00 AM CDT) us Scanner OTHER Final Result * SCAN-LABORATORY REPORT (01/29/2025 12:00 AM CDT) us Scanner OTHER Final Result * XR FOOT 3 VIEWS LEFT (12/22/2024 2:49 PM CDT) Anatomical Region Laterality Modality FEET, FOOT L Computed Radiogr aphy 12/22/2024 11:2 3 PM CDT Impressions 12/22/2024 11:23 PM CDT 1. No acute osseous injuries or abnormalities are noted. Dictated by Jesus Rogers MD @ 12/22/2024 11:21:43 PM Dictated by: Jesus Rogers MD @ 12/22/2024 23:23:22 (Electronically Signed) Narrative 12/22/2024 11:23 PM CDT For Patients: As a result of the Cures Act, medical imaging exams and procedure reports are released immediately into your electronic medical record. You may view this report before your referring provider. If you have questions, please contact your health care provider. INDICATION: Foot pain TECHNIQUE: Foot radiograph 3 views left COMPARISON: 11/03/2021 FINDINGS: Bone: No acute fractures or aggressive bone lesions are identified. An accessory navicular bone is present. Joint: The visualized hindfoot, midfoot, and forefoot joints are unremarkable in appearance. No significant ankle effusion is seen. Soft tissue: Unremarkable. No radiopaque foreign bodies are seen. Procedure Note Jesus Rogers MD - 12/22/2024 For Patients: As a result of the Cures Act, medical imagingexams and procedure reports are released immediately into your electronicmedical record. You may view this report before your referring provider.If you have questions, please contact your health care provider. INDICATION: Foot pain TECHNIQUE: Foot radiograph 3 views left COMPARISON: 11/03/2021 FINDINGS: Bone: No acute fractures or aggressive bone lesions are identified. Anaccessory navicular bone is present. Joint: The visualized hindfoot, midfoot, and forefoot joints areunremarkable in appearance. No significant ankle effusion is seen. Soft tissue: Unremarkable. No radiopaque foreign bodies are seen. IMPRESSION: 1. No acute osseous injuries or abnormalities are noted. Dictated by Jesus Rogers MD @ 12/22/2024 11:21:43 PM Dictated by: Jesus Rogers MD @ 12/22/2024 23:23:22 (Electronically Signed) [facility] Final Result * XR ANKLE 3 VIEWS LEFT (12/18/2024 3:45 PM CDT) Anatomical Region Laterality Modality ANKLES, ANKLE L Computed Radiogr aphy 12/18/2024 7:34 PM CDT Narrative 12/18/2024 7:34 PM CDT For Patients: As a result of the Cures Act, medical imaging exams and procedure reports are released immediately into your electronic medical record. You may view this report before your referring provider. If you have questions, please contact your health care provider. Indication: Left ankle pain. Technique: Three radiographic views of the left ankle. Comparison: None. Findings: No acute fractures. Ankle mortise is intact. No significant soft tissue swelling or ankle effusion. Impression: 1. No acute osseous abnormalities. Dictated by De Valverde MD @ 12/18/2024 7:34:44 PM (Electronically Signed) Procedure Note De Valverde MD - 12/18/2024 For Patients: As a result of the Cures Act, medical imagingexams and procedure reports are released immediately into your electronicmedical record. You may view this report before your referring provider.If you have questions, please contact your health care provider. Indication: Left ankle pain. Technique: Three radiographic views of the left ankle. Comparison: None. Findings: No acute fractures. Ankle mortise is intact. No significant soft tissueswelling or ankle effusion. Impression: 1. No acute osseous abnormalities. Dictated by De Valverde MD @ 12/18/2024 7:34:44 PM (Electronically Signed) [facility] Final Result * (ABNORMAL) LIPID PANEL (10/03/2024 3:40 PM CDT) CHOLESTEROL, TOTAL 247(H) <200 mg/dL [facility] HDL CHOLESTEROL 61 > OR = 50 mg/dL [facility] TRIGLYCERIDES 107 <150 mg/dL [facility] LDL-CHOLESTEROL 164(H) mg/dL (calc) [facility] Comment: Reference range: <100 Desirable range <100 mg/dL for primary prevention; <70 mg/dL for patients with CHD or diabetic patients with > or = 2 CHD risk factors. LDL-C is now calculated using the Km calculation, which is a validated novel method providing better accuracy than the Friedewald equation in the estimation of LDL-C. Fermin SS et al. BERTHA. 2013;310(19): 7813-1879 (http://education.MarkaVIP/faq/PPK873) CHOL/HDLC RATIO 4.0 <5.0 (calc) [facility] NON HDL CHOLESTEROL 186(H) <130 mg/dL (calc) [facility] Comment: For patients with diabetes plus 1 major ASCVD risk factor, treating to a non-HDL-C goal of <100 mg/dL (LDL-C of <70 mg/dL) is considered a therapeutic option. Blood BLOOD SPECIMEN / Unknown 10/03/2024 3:40 PM CDT 10/03/2024 3:40 PM CDT Abhijit George MD CHEMISTRY Final Resu lt [employer] [facility] [address] [place] [address], [facility] [address] [place] [address] * ANTI HCV (10/04/2023 2:16 PM CDT) HEPATITIS C ANTIBODY Non-Reacti ve Non-React diane 10/04/2023 9:35 PM CDT [facility] Comment:Please note, per www .CDC.gov: If a patient is known to be at high risk of HCV infection, or is symptomatic, and the physician's suspicion of HCV infection is high, HCV RNA testing is often employed and is of diagnostic value, even after an initial negative anti-HCV test result. Blood BLOOD SPECIMEN / Unknown Venipuncture / Unknown 10/04/2023 2:16 PM CDT 10/04/2023 2:17 PM CDT Abhijit George MD SEND OUTS Final Resu lt [facility] [address] [place] [address], [place] * XR MAMMO SHERICE BILAT SCREEN (12/28/2020 4:27 PM CDT) Anatomical Region Laterality Modality BREASTS, Breast Left, Breast Right Bilateral Mammography Impressions 12/29/2020 4:10 PM CDT There is no radiographic evidence for malignancy. Recommend annual mammograms. MAMMOGRAM ASSESSMENT: ACR 1 Negative PATIENTS: You will also receive a letter with your examination results in an easy to read format. If you have questions about your results, please contact your referring provider. Narrative 12/29/2020 4:10 PM CDT For Patients: As a result of the Century Cures Act, medical imaging exams and procedure reports are released immediately into your electronic medical record. You may view this report before your referring provider. If you have questions, please contact your health care provider. XR MAMMO SHERICE BILAT SCREEN [[id number]] CLINICAL HISTORY: This is an asymptomatic 50 y.o. patient. INDICATION FOR EXAM: Mammogram Screening. TECHNIQUE: CC & MLO views were obtained. This study was evaluated with the assistance of Computer-Aided Detection. Breast Tomosynthesis was used in interpretation. COMPARISON FILM: Yes [facility] FINDINGS: The breasts have scattered areas of fibroglandular density. There are no dominant masses, suspicious micro calcifications or areas of architectural distortion. us Abhijit George MD MAMMO Final Resu lt * COLONOSCOPY (11/23/2020 11:34 AM CDT) 11/23/2020 11:3 4 AM CDT Narrative Transcriptions Fermin Figueroa MD - 11/23/2020 2:07 PM CDT Patient Name: Rebecca Nascimento Procedure Date: 11/23/2020 Gender: Female Date of : 1970 Admit Type: Outpatient Procedure: Colonoscopy Proceduralist: Fermin Figueroa MD , Roxann Ta RN(Nurse) Indications/Pre-Op Diagnosis: Screening for colorectal malignant neoplasm, Last colonoscopy: October 2010 Medications: Fentanyl 100 micrograms IV, Midazolam 2 mgIV Procedure Description: The patient had risks, benefits and alternatives explained to andgave informed consent. The patient had a stable cardiopulmonary status and judged an adequate candidate for conscious sedation. The Colonoscope was passed through the anus and advanced to thececum, identified by appendiceal orifice and ileocecal valve. Thecolonoscopy was performed without difficulty. The patient tolerated the procedure well. The quality of the bowel preparation was good. The ileocecal valve, appendiceal orifice, and rectum were photographed. Complications: No immediate complications. Estimated Blood Loss & Specimen: Estimated blood loss: none. Specimen collected - None Findings: The perianal and digital rectal examinations were normal. The entire examined colon appeared normal on direct and retroflexion views. Impressions/Post-Op Diagnosis: - The entire examined colon is normal on direct and retroflexionviews. - No specimens collected. Recommendation: - Patient has a contact number available for emergencies. The signsand symptoms of potential delayed complications were discussed with the patient. Return to normal activities tomorrow. Written discharge instructions were provided to the patient. - Resume previous diet. - Continue present medications. - Repeat colonoscopy in 10 years for screening purposes. Moderate Sedation: Moderate (conscious) sedation was administered by the endoscopy nurse and supervised by the endoscopist. The following parameters were monitored: oxygen saturation, heart rate, respiratory rate, blood pressure, adequacy of pulmonary ventilation and reponse to care. Please refer to the patient's medical record flowsheets and nursing notes for moderate sedation details. Total physician intraservice time was 17 minutes. Fermin Figueroa MD 11/23/2020 2:07:38 PM This report has been signed electronically. Note Initiated On: 11/23/2020 11:34 AM Procedure Code(s): --- Professional --- 17896, Colonoscopy, flexible; diagnostic, including collection of specimen(s) bybrushing or washing, when performed (separateprocedure) Diagnosis Code(s): --- Professional --- Z12.11, Encounter for screening formalignant neoplasm of colon CPT copyright 2020 [employer]. All rights reserved. The codes documented in this report are preliminary and upon science technicians reviewmay be revised to meet current compliance requirements. Scope In: 1:42:02 PM Scope Withdrawal Time 0 hours 7 minutes 26 seconds Scope Out: 1:57:48 PM us Fermin Figueroa MD PROCEDURE ORD Final Res ult * ANTI HIV 1/2 (08/02/2018 2:56 PM INFORMATICS SCIENTIST) HIV-1/HIV-2 ANTIBODY Non-Reacti ve Non-Reacti ve 08/02/2018 7:46 PM INFORMATICS SCIENTIST [facility] [employer] [facility] Comment:HIV-1 p24 and HIV-1/ HIV-2 Ab not detected. Blood BLOOD SPECIMEN / Unknown Venipuncture / Unknown 08/02/2018 2:56 PM INFORMATICS SCIENTIST 08/02/2018 2:56 PM INFORMATICS SCIENTIST Abhijit George MD SEND OUTS Final Resu lt [facility] [address] [place] [address], * DIGITAL STRATEGIST THIN PREP PAP SCREEN IMAGED (11/30/2016 5:44 PM CDT) Case Report Gynecologic Cytology Report Case: [id number] Authorizing Provider: Elodia Finney Collected: 11/30/2016 [address] Ordering Location: [facility] Received: 11/30/2016 1745 Clinic First Screen: Ankur Choi Specimen: DIGITAL STRATEGIST ThinPrep Vial Screening, Cervical 12/08/2016 9:49 AM CDT [facility] INTERPRETATION/ RESULT NEGATIVE FOR INTRAEPITHELIAL LESION OR MALIGNANCY (NIL) (none) 12/08/2016 9:49 AM CDT [facility] at 0949 CDT SPECIMEN ADEQUACY Satisfactory for evaluation Endocervical component present 12/08/2016 9:49 AM CDT [facility] HPV REQUEST HPV if ASCUS 12/08/2016 9:49 AM CDT [facility] Date of LMP 07/201512/08/2016 9:49 AM CDT [facility] Last Pap Date 201312/08/2016 9:49 AM CDT [facility] Last Pap Result NIL 7 9:49 AM CDT [facility] Abnormal Pap or Kinsey Bx in last 5 years No 12/08/2016 9:49 AM CDT [facility] Menstrual Status Postmenopausal 12/08/2016 9:49 AM CDT [facility] Kinsey Bx Done Today No 12/08/2016 9:49 AM CDT [facility] Additional Information None given 12/08/2016 9:49 AM CDT [facility] Automated Review Successful 12/08/2016 9:49 AM CDT [facility] Comment:Specimen processed s uccessfully by automated center sales and service associate device, ThinPrep Imaging System, [employer] Note The pap test is a screening technique, not a diagnostic procedure. It is used primarily to screen for squamous cancers and precursor lesions. Published studies have shown that it is subject to both false negative and false positive results. The pap test should not be used as the sole means to diagnose or exclude pre-malignant and malignant lesions. Interpreted at [facility] ([facility], [facility], [facility], [facility], [facility], [facility], [facility]) 12/08/2016 9:49 AM CDT [facility] [employer] LABORATORY-[facility]TRAL LABORATORY Other (Cervical) 11/30/2016 5:44 PM CDT 11/30/2016 5:45 PM CDT us Elodia Schultz NP PATHOLOGY/CYTOLOG Y Final Result [facility] [address] [place] [address], [place] from Last 3 Months or Most Recently Relevant to Health Maintenance Insurance [facility] [place] Care Teams Government Auditor Relationship Specialty Start Date End Date Abhijit George MD [address] [place] [address] PCP - General Family Practice 11/08/21 Fabricio Carrion MD [address] [facility] [address] [place] [address] Rheumatology Rheumatology 05/23/12
--- NOTE | 2025-02-23 21:27 | ED_ITS ---
HPI - General Adult General Time Seen by Provider: 21:27 Date Seen: 02/23/25 Chief complaint: Sore Throat Stated complaint: allergic reaction Time Seen by Provider: 02/23/25 21:26 Source: patient and RN notes reviewed Mode of arrival: ambulatory Limitations: no limitations History of Present Illness HPI narrative: This 55-year-old female is coming into the ER with concern possible allergic reaction. She was at her son's wedding on Sunday, it was outside and she was wearing a sleeveless shirt. She got bit in the left forearm by some type of bug, has no idea what it was. She has been using hydrocortisone cream on the arm and ice. She had an atypical reaction where her heart raced with Benadryl use in the past. 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 She has had no fever. Today she started to notice some sore throat and scratchy throat, she does believe she starting to feel little postnasal drainage now. She was wondering if the bug bite was causing an allergic reaction. She has had no abdominal symptoms, no pain, no nausea or vomiting. She is having no difficulty breathing. Her throat is sore. She does have COVID history x2. She does live with her mom and her elderly grandma of age 106, wants to make sure she does not bring anything to them. Her left arm was really swollen this morning, she did wrap it, put lots [id number] hydrocortisone cream on it and did use ice today, the swelling has went down. The redness is increasing in size, is both itchy and painful. She has a history being stung by a bee in her left ear, her work place in [employer] became infested by bees and they had tried to get rid of them. She states her left ear really swelled, she did get Keflex and it did help the ear. The Keflex however tore her stomach up, she had to be on omeprazole for a month after use. She believes she was on the Keflex 500 mg 3 times a day for 10 days. Related Data Home Medications ?Medication ?Instructions ?Recorded ?Confirmed aspirin 325 mg tablet 325 mg PO QDAY 12/13/2105/28 cholecalciferol (vitamin D3) 25 25 mcg PO QDAY 2 06/07/22 mcg (1,000 unit) capsule ascorbate calcium (vitamin C) 500 500 mg PO QDAY 05/3006/07/22 mg tablet krill oil 500 mg capsule 500 mg PO .QD 05/30/2206/07 magnesium 1 cap PO .QD 06/07/22 vitamin B complex 0.5 tab PO QDAY 06/07/2204/19 Allergies Allergy/AdvReac Type Severity Reaction Status Date / Time penicillin V Allergy Mild swelling Verified 02/23/25 21:23 cephalexin AdvReac Intermediate Verified 02/23/25 21:23 Rabies immune globulin, human Allergy Unknown headache, Uncoded 06/07/22 15:30 breathing difficultly, body aches Rabies vaccines Allergy Unknown headache, Uncoded 06/07/22 15:30 body aches, difficulty breating, shooting pains Tetanus toxoid Allergy Unknown breathing Uncoded 06/07/22 15:30 difficulty and swelling contrast dye Allergy red, hives Uncoded 06/07/22 15:30 Review of Systems Narrative: Per HPI. [facility] Medical History Menorrhagia (11/17/09) ?N92.0 - Excessive and frequent menstruation with regular cycle (ICD-10) History of rheumatic fever ?Z86.79 - Personal history of other diseases of the circulatory system (ICD- 10) History of mitral valve prolapse (11/2020) ?Z86.79 - Personal history of other diseases of the circulatory system (ICD- 10) Surgical History History of colonoscopy (2011) ?Z98.890 - Other specified postprocedural states (ICD-10) History of appendectomy (1983) ?Z90.49 - Acquired absence of other specified parts of digestive tract (ICD- 10) Family History Father AML (acute myeloid leukemia) Paternal Grandfather Bladder cancer Aunt Breast cancer, Onset Age: 60 Type 1 diabetes mellitus Maternal Grandmother Stroke, Onset Age: 59 Heart disease Paternal Grandmother Heart disease Social History Narrative: , 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[employer], 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, lives in [place] exercises 3-4 times per week- walk, elliptical, weights - until 2019 non-smoker social drinker- 1-2/week Smoking Status: Never smoker Do you use any of these nicotine containing products: None Second hand tobacco smoke exposure: No How often do you have a drink containing alcohol: monthly or less How many standard drinks containing alcohol do you have on a typical day: 1 or 2 How often do you have six or more drinks on one occasion: Never AUDIT-C Alcohol total score: 1 Non-prescribed substance use: denies use service: No Exam Const: Vital Signs, click to edit/add: Vital Signs - 24 hr 02/23/25 21:14 Temperature 98.0 F Pulse Rate [Pulse Oximeter] 61 Respiratory Rate 18 Blood Pressure [Ri ght Upper Arm] 140/88 H Pulse Oximetry 97 Oxygen Delivery Me thod Room Air The 55-year-old female is alert, interactive, no apparent distress, seen exam room 1. Pupils equal round reactive, sclerae clear, extraocular muscles intact. Symmetric facial function, oropharynx with normal posterior pharynx, no exudates erythema, mucosa is normal, tongue is normal, lips are normal. There is no swelling. I see no exudates or significant erythema. Neck is supple, no adenopathy. Speech is normal, no hoarseness. Lungs are clear come good air entry, no wheezing crackles, no tachypnea, no accessory muscle use. CV regular rate and rhythm, no murmur, normal S1-S2. Abdomen is soft, nontender, nondistended, no organomegaly. The left flexor forearm has 2 little small punctate wounds in the center erythema and pinkish discoloration. There is a little induration but no fluctuance. The whole forearm is slightly swollen, warm. There is a little small area of tracking up towards the elbow, almost appears like a smaller early lymphangitic streak. She has full range of motion of this extremity without limitation. Documenting provider has reviewed patient's vital signs: yes Course Course ED Course: Have discussed with patient that I really do not think her sore throat has anything to do with an allergic reaction or the arm. The arm is a separate entity which she and I discussed. The difficulty lies in if she developing an early cellulitis or as this just a significant localized bug bite reaction. We did discuss this at some length, with informed decision-making, she would like to go back on Keflex but a lower dose. I think we can do 500 mg twice a day in just go for weak. She can take 5 mg of Zyrtec and if it works, can take it up to twice a day. Did discuss the use of prednisone but if she has had stomach issues, think the Zyrtec should be sufficient. She can continue with topical hydrocortisone and icing. As for her throat, I suspect she is developing a new upper respiratory infection. She states there are a lot of people at the wed [place] and many kids. I suspect that she may be coming down with something. She requested to be tested for COVID and strep. We will do so. We are not going to make her wait for this testing, we will contact her if results are positive. Reevaluation(s) Time of Reevaluation #1: 21:58 Reevaluation #1: Patient has decided to wait for her results. She is supposed to be flying back to [place] tomorrow, has meetings that she needs to attend. If she were to come back COVID positive, she understands that she may need to stay. Thus, she has opted to wait for her results. We did discuss that Keflex should cover strep if she were positive for that. Time of Reevaluation #2: 22:43 Reevaluation #2: Reviewed negative testing. Will discharge to home as planned. Vital Signs Vital signs: Initial Vital Signs Temperature 98.0 F 02/23/25 21:14 Temperature Source Temporal Artery Scan 02/23/25 21:14 Pulse Rate 61 02/23/25 21:14 Pulse Rhythm Regular 02/23/25 21:14 Respiratory Rate 18 02/23/25 21:14 Blood Pressure 140/88 H 02/23/25 21:14 Blood Pressure Mean 105 02/23/25 21:14 Blood Pressure Position Sitting 02/23/25 21:14 Pulse Oximetry 97 02/23/25 21:14 Oxygen Delivery Method Room Air 02/23/25 21:14 Vital Signs Temperature 98.0 F 02/23/25 21:14 Pulse Rate 61 02/23/25 21:14 Respiratory Rate 18 02/23/25 21:14 Blood Pressure 140/88 H 02/23/25 21:14 Pulse Oximetry 97 02/23/25 21:14 Oxygen Delivery Method Room Air 02/23/25 21:14 Temperature 98.0 F 02/23/25 21:14 Pulse Rate 61 02/23/25 21:14 Respiratory Rate 18 02/23/25 21:14 Blood Pressure 140/88 H 02/23/25 21:14 Pulse Oximetry 97 02/23/25 21:14 Oxygen Delivery Method Room Air 02/23/25 21:14 Medical Decision Making Lab Data Lab results reviewed: Yes I reviewed the patient's lab results Labs: Lab Results 02/23/25 Range/Units 21:45 SARS-CoV-2 (PCR) Negative SARS-CoV-2 (Negative) Influenza Type A (PCR) Negative PCR FLU A (Negative) Influenza Type B (PCR) Negative PCR FLU B (Negative) RSV (PCR) Negative PCR RSV (Negative) Group A Strep DNA NOT DETECTED (Not Detectd) Discharge Plan Discharge Clinical Impression: Bug bite, Acute sore throat Patient Disposition: Home, Self-Care Condition: Stable Instructions: Pharyngitis (ED), Insect Bite or Sting (ED) Additional Instructions: Start Keflex 500 mg twice a day for 7 days to cover for possible secondary infection of your arm, we call this cellulitis. It is possible that this is still a significant localized bug bite reaction. Do recommend that you take 5 mg of Zyrtec, if you tolerate this you can take it twice a day. Continue to ice your arm to help decrease swelling and symptoms. Can continue with the topical hydrocortisone cream. As for your sore throat, do think you are probably developing a new upper respiratory illness or cold. If you have ongoing symptoms or progressive symptoms, can consider retesting for COVID in a few days. Otherwise, seek re-evaluation if you have any concern for worsening of your symptoms, any new problems arise. Activity Level: Activity as Tolerated Prescriptions: No Action cholecalciferol (vitamin D3) 25 mcg (1,000 unit) capsule 25 mcg PO QDAY aspirin 325 mg tablet 325 mg PO QDAY ascorbate calcium (vitamin C) 500 mg tablet 500 mg PO QDAY krill oil 500 mg capsule 500 mg PO .QD vitamin B complex Tablet 0.5 tab PO QDAY magnesium 1 cap PO .QD Follow Up/Referrals: Jeffery Christiansen MD [Staff Physician, Family Practice] Stand Alone Forms: MyHealth Info Instructions
[2025-02-23 22:18] LABS: Strep A DNA Probe* NOT DETECTED (Not Detectd)
[2025-02-23 22:32] LABS: PCR FLU A Negative PCR FLU A (Negative); PCR FLU B Negative PCR FLU B (Negative); PCR RSV Negative PCR RSV (Negative); SARS PCR* Negative SARS-CoV-2 (Negative)
[2025-02-23 23:25] VITALS: PULSE 68; RESP 18
== END 2025-02-23 23:27 | disposition home or self-care (01) ==
PROVIDERS: Emergency Provider Family Medicine; PCP Surgery
DX: J02.9 Acute pharyngitis, unspecified (principal); S50.862A Insect bite (nonvenomous) of left forearm, initial encounter; T78.40XA Allergy, unspecified, initial encounter
CPT/HCPCS: 87631; 87651; 99283

== ENCOUNTER 2025-05-15 14:26 | Outpatient (CLI) | payer BC, SELFPAY ==
[2025-05-15 21:41] LABS: Bacterial Vaginosis* Negative (Negative); Candida glab/krus NOT DETECTED (No Detected)
== END 2025-05-15 14:27 | disposition home or self-care (01) ==
LOC: NFLDREF 14:26
PROVIDERS: PCP Surgery; Visit Provider Registered Nurse
DX: N89.8 Other specified noninflammatory disorders of vagina (principal)
CPT/HCPCS: 81513; 87481; 87661

== ENCOUNTER 2025-05-18 16:40 | Outpatient (CLI) | payer BC, SELFPAY | END 2025-05-18 16:41 | disposition home or self-care (01) | LOC: NFLDREF 16:41 | PROVIDERS: PCP Surgery; Visit Provider Registered Nurse | DX: R30.0 Dysuria (principal) | CPT/HCPCS: 87086 ==